=== PATIENT | male | born 1985 | race Caucasian/White ===

== ENCOUNTER 2020-09-30 09:07 | Emergency (ER) | payer OTHER ==
[2020-09-30 10:41] LABS: BASOPHIL 0.2 % (0-2); EOSINOPHIL 0.2 % (0-5); HCT 41.5 % (42.0-52.0); HGB 14.4 g/dl (13.2-18.0); LYMPHOCYTE 15.3 % (15-48); MCH 31.4 pg (25.0-31.0); MCHC 34.7 g/dL (32.0-36.0); MCV 90.6 fL (78.0-100.0); MONOCYTE 9.2 % (0-12); MPV 10.8 fL (6.0-9.5); NEUTROPHIL 74.1 % (41-80); NRBC 0; PLT 178 K/uL (150-400); RBC 4.58 M/uL (4.70-6.00); RDW 12.6 % (11.5-14.0)
[2020-09-30 10:45] LABS: BILIRUBIN NEGATIVE (NEGATIVE); BLOOD TRACE-INTACT Ery/uL (NEGATIVE); CLARITY CLEAR (CLEAR); COLOR YELLOW (YELLOW); GLUCOSE (U) NORMAL (NORMAL); LEUKOCYTES NEGATIVE Leu/uL (NEGATIVE); NITRITE NEGATIVE (NEGATIVE); PROTEIN TRACE (LOW) mg/dL (NEGATIVE); SPECIFIC GRAVITY >=1.030 (1.001-1.030); pH 5.5 (5.0-9.0)
[2020-09-30 10:46] LABS: INR 1.12 (0.9-1.2); PROTHROMBIN TIME 13.7 SECONDS (11.4-13.6); PTT 37.2 SECONDS (22.2-34.7)
[2020-09-30 10:47] LABS: D-DIMER 0.38 ug/mLFEU (0.00-0.41)
[2020-09-30 10:53] LABS: AMPHETAMINES NEGATIVE (NEGATIVE); BARBITURATES NEGATIVE (NEGATIVE); ECSTASY (MDMA) NEGATIVE (NEGATIVE); MARIJUANA (THC) NEGATIVE (NEGATIVE); METHADONE NEGATIVE (NEGATIVE); OPIATES NEGATIVE (NEGATIVE); OXYCODONE NEGATIVE (NEGATIVE)
[2020-09-30 11:13] LABS: ALKALINE PHOSHATASE 66 U/L (46-116); ALT 31 U/L (16-63); AST 15 U/L (15-37); BILIRUBIN - TOTAL 0.6 mg/dL (0.2-1.0); BUN 13 mg/dL (7-18); BUN/CREAT RATIO (CALC) 13.5 RATIO; C-REACTIVE PROTEIN >18.00 mg/dL (<=0.90); CHLORIDE 97 mmol/L (98-107); CO2 (BICARBONATE) 28 mmol/L (21-32); CPK 94 U/L (39-308); CREATININE 0.96 mg/dL (0.67-1.17); GLOBULIN (CALCULATION) 4.1 g/dL; GLUCOSE 135 mg/dL (74-106); LDH 201 U/L (85-227); TOTAL PROTEIN 8.1 g/dL (6.4-8.2)
[2020-09-30 11:14] LABS: BACTERIA TRACE; URINARY RBC RARE
[2020-09-30] MEDS ORDERED: VIBRAMYCIN100 MG PO (12:13)
== END 2020-09-30 12:45 | disposition home or self-care (01) ==
LOC: FER 09:07
PROVIDERS: Emergency Medicine
DX: I89.0 Lymphedema, not elsewhere classified (principal); F17.210 Nicotine dependence, cigarettes, uncomplicated; Z20.822 Contact with and (suspected) exposure to COVID-19
CPT/HCPCS: 36415; 73060; 73090; 80053; 80305; 81001; 82550; 82728; 83605; 83615; 83880; 84145; 85025; 85379; 85610; 85730; 86140; 87040; 93971; J1885; U0002